=== PATIENT | female | born 1985 | race Caucasian/White ===

== ENCOUNTER 2023-12-03 12:25 | Emergency (ER) | payer BC, SELFPAY ==
[2023-12-03 12:43] VITALS: BP 163/93; PULSE 87; RESP 18; TEMP 36.8; O2SAT 97; BMI 42.1
--- NOTE | 2023-12-03 13:00 | XR_ITS ---
Patient: CHRISTI NO Facility:?[facility] Patient ID:?[id number] Site Patient ID:[id number]. Site :?[id number] Study:?XRay-Shoulder CLAVICLE 2 VIEW-12/03/2023 1:41:46 PM Ordering Physician:GARY Final Report: INDICATION: Fell down stairs. TECHNIQUE: Left clavicle two views. COMPARISON: None. FINDINGS: There is a comminuted segmental overlapping left mid shaft clavicle fracture with cephalad displacement of the medial clavicle. Soft tissues as imaged are unremarkable. IMPRESSION: Comminuted overlapping left midshaft clavicle fracture. Dictated by Sujit Akins MD @ 12/03/2023 2:00:49 PM Signed by:?Sujit Akins MD @12/03/2023 2:00:49 PM (Electronic Signature)
--- NOTE | 2023-12-03 13:01 | ED.GENADULT ---
HPI - General Adult General Chief complaint: Clavicle Injury/Pain Stated complaint: shoulder injury Time Seen by Provider: 12/03/23 12:26 History of Present Illness HPI narrative: This 38-year-old female comes in with an injury to her left shoulder and clavicle region. She states that she slid down a bunch of steps and fell injuring her left shoulder. She did not have loss of consciousness and does not report any other injury. She has been able to get up and ambulate without difficulty. She is complaining of pain at the mid left clavicle. Related Data Previous Rx's Medication Instructions Recorded hydrocodone 5 mg-acetaminophen 325 1 tab PO Q4-6H PRN pain #15 tabs 12/03/23 mg tablet Allergies Allergy/AdvReac Type Severity Reaction Status Date / Time No Known Drug Allergies Allergy Verified 12/03/23 12:45 Review of Systems Status of ROS: Reports: 10 or more systems reviewed and unremarkable except as noted in History and below Narrative: Constitutional: No fevers, no weight gain or loss. Eyes: No discharge. No vision changes. HENT: No congestion, no sore throat, no ear pain. Cardiovascular: No chest pain, no palpitations. Respiratory: No shortness of breath, no wheezes, no cough. Gastrointestinal: No abdominal pain, no vomiting, no diarrhea. Genitourinary: No dysuria, no hematuria. Musculoskeletal: Left clavicle injury as described above. Skin: No rashes, no pruritis. Neurological: No dizziness, weakness, sensory change, speech change. Endo/Heme/Allergies: No bruising or bleeding. No polydipsia. Pysch: no suicidality, no anxiety, no insomnia. All other systems reviewed and are negative. Exam Narrative: Exam Narrative: Constitutional: Well-developed, well-nourished, no acute distress. HEENT: Normocephalic, atraumatic. Neck: Normal range of motion. Nontender. Supple. Heart: Intact distal pulses. Lungs: No chest discomfort. No wheezes, rhonchi, or rales. Abdomen: Nontender. Back: Normal range of motion. Extremities: Patient prefers to hold her left upper extremity still. No sign of anterior fullness or tenderness when palpating in the proximal humerus. She does have tenderness in the midshaft area of the left clavicle but no obvious sign of deformity. Skin: Intact. No rash. Warm. No erythema or pallor. Neurologic: No altered sensation. No weakness. Alert and oriented. Psychiatric: No suicidality. No anxiety or depression. No insomnia. Nursing notes and vitals signs are reviewed. Const: Vital Signs, click to edit/add: Vital Signs - 24 hr 12/03/23 12:43 Temperature 98.2 F Pulse Rate [Right Pulse Oximeter] 87 Respiratory Rate 18 Blood Pressure [Ri ght Upper Arm] 163/93 H Pulse Oximetry 97 Oxygen Delivery Me thod Room Air Course Vital Signs Vital signs: Initial Vital Signs Temperature 98.2 F 12/03/23 12:43 Temperature Source Temporal Artery Scan 12/03/23 12:43 Pulse Rate 87 12/03/23 12:43 Respiratory Rate 18 12/03/23 12:43 Blood Pressure 163/93 H 12/03/23 12:43 Blood Pressure Mean 116 H 12/03/23 12:43 Blood Pressure Position Sitting 12/03/23 12:43 Pulse Oximetry 97 12/03/23 12:43 Oxygen Delivery Method Room Air 12/03/23 12:43 Vital Signs Temperature 98.2 F 12/03/23 12:43 Pulse Rate 87 12/03/23 12:43 Respiratory Rate 18 12/03/23 12:43 Blood Pressure 163/93 H 12/03/23 12:43 Pulse Oximetry 97 12/03/23 12:43 Oxygen Delivery Method Room Air 12/03/23 12:43 Temperature 98.2 F 12/03/23 12:43 Pulse Rate 87 12/03/23 12:43 Respiratory Rate 18 12/03/23 12:43 Blood Pressure 163/93 H 12/03/23 12:43 Pulse Oximetry 97 12/03/23 12:43 Oxygen Delivery Method Room Air 12/03/23 12:43 Medical Decision Making MDM Narrative Medical decision making narrative: This patient comes in with injury to her left shoulder as described above. X-rays obtained of the left clavicle and shows a midshaft fracture that is comminuted and displaced. X-ray images are yet to be reviewed by Radiology. The patient did receive a figure-eight clavicle strap and a sling. She is stating currently that she does not want any surgery however I informed her that the nature of this injury may require that. She is okay to be discharged home in did receive a prescription for tablets of Bart[place]. I advised her to follow-up with orthopedic clinic for ongoing management. Discharge Plan Discharge Clinical Impression: Clavicle fracture Patient Disposition: Home, Self-Care Condition: Stable Additional Instructions: Wear clavicle strap and use sling as needed. Use medication also as needed and directed. Follow-up with orthopedic clinic for ongoing management. Call [phone] for appointment. Prescriptions: New hydrocodone-acetaminophen 5-325 mg tablet 1 tab PO Q4-6H PRN (Reason: pain) Qty: 15 0RF Follow Up/Referrals: Provider,Not a Local [Primary Care Provider] - Stand Alone Forms: [employer] Info Instructions
== END 2023-12-03 14:10 | disposition home or self-care (01) ==
PROVIDERS: Emergency Provider Emergency Medicine Emergency Medical Services
DX: S42.025A Nondisplaced fracture of shaft of left clavicle, initial encounter for closed fracture (principal); W10.9XXA Fall (on) (from) unspecified stairs and steps, initial encounter
CPT/HCPCS: 73000; 99284

== ENCOUNTER 2023-12-11 08:34 | Day surgery (SDC) | payer BC, SELFPAY ==
[2023-12-11] VITALS (9 sets, daily range): BP systolic 117–162; BP diastolic 72–105; PULSE 52–94; RESP 14–22; TEMP 36.4–36.9; O2SAT 93–98; BMI 40.4
[2023-12-11 08:50] LABS: Ur HCG Qualitative* Negative (Negative)
[2023-12-11] MEDS: CELECOXIB 200 MG CAPSULE PO (09:04)
[2023-12-11] MEDS: ACETAMINOPHEN 500 MG TABLET 1000 MG PO (09:04)
[2023-12-11] MEDS: LACTATED RINGERS 1000 ML 1,000 ML 100 ML IV ×2 (09:08→11:58)
[2023-12-11] MEDS: SODIUM CHLORIDE 0.9 % (FLUSH) 10 ML SYRINGE IVF (09:08)
[2023-12-11] MEDS: OXYCODONE (CR) 10 MG TAB.ER.12H PO (09:09)
[2023-12-11] MEDS: CEFAZOLIN 2 GM INJ IVP (10:21)
--- NOTE | 2023-12-11 10:45 | CRLHL7_ITS ---
For Patients: As a result of the Cures Act, medical imaging exams and procedure reports are released immediately into your electronic medical record. You may view this report before your referring provider. If you have questions, please contact your health care provider. Indication: Left clavicle ORIF Technique: Four films of the left clavicle. IMPRESSION: Open reduction internal fixation left clavicular fracture with intact hardware and anatomic alignment. Dictated by David Herbert MD @ 12/12/2023 1:47:22 PM (Electronically Signed)
[2023-12-11] MEDS: BUPIVACAINE 0.5% 30 ML INJECTION (10:56)
--- NOTE | 2023-12-11 11:02 | W.ANESCHARGE ---
Anesthesia Charges Start Date/Time Anesthesia Start Date: 12/11/23 Anesthesia Start Time: 10:09 Stop Date/Time Anesthesia Stop Date: 12/11/23 Anesthesia Stop Time: 12:30
--- NOTE | 2023-12-11 11:58 | P.ORPRC_ITS ---
Procedure Note Date of procedure: 12/11/23 Procedure: PREOPERATIVE DIAGNOSIS: Comminuted and displaced left clavicle shaft fracture POSTOPERATIVE DIAGNOSIS: Comminuted and displaced left clavicle shaft fracture NAME OF OPERATION: ORIF SURGEON: Nikhil Isaac MD [facility] CHIEF LIBRARIAN: Acosta Weeks PA-C ANESTHESIA: General ESTIMATED BLOOD LOSS: 20 mL COMPLICATIONS: None SPECIMENS: None DRAINS: None PREOPERATIVE ANTIBIOTICS: Ancef 2 g INDICATIONS: The patient is a 38-year-old who sustained a left clavicle fracture. Given the amount of displacement, ORIF was recommended. The risks, benefits and expected outcomes were discussed in detail. These included but were not limited to: Infection, bleeding, injury to blood vessel or nerve, venous thromboembolism. All questions were answered to their satisfaction. PROCEDURE: General anesthesia was administered. The patient was placed in the lazy beach chair position. The shoulder was prepped and draped in the usual sterile fashion. A longitudinal incision was made over clavicle. Subcutaneous dissection was made with electrocautery to the medial fragment which was subperiosteally exposed. We followed this distally to locate the distal fragment and subperiosteally exposed it as well. There was a marked amount of midshaft comminution, with an anterior and inferior butterfly fragment. It was nearly impossible to find landmarks to reduce the 2 main fragments. We used a posterior landmark to obtain an anatomic reduction. A Synthes locking clavicle plate was placed over the superior cortex. This was secured with a BB tack on each side of the fracture. 2.7 mm locking screws were placed on each side of the fracture. The butterfly fragments were cerclaged in place with a 0 Vicryl suture. An intraoperative AP view of the clavicle show an adequate reduction with well placed implants. The wound was irrigated with normal saline. It was infiltrated with 0.5% Marcaine, without epinephrine. We closed the platysma with an 0 Vicryl. Subcutaneous tissues with a 2-0 Vicryl and skin with a 3-0 Monocryl. Glue was used to seal the skin. A dry dressing and sling were applied. The patient tolerated the procedure well. There were no apparent complications. They were carefully transferred to the hospital bed and taken to the postanesthesia care unit in satisfactory condition. PLAN: The patient will be discharged to home. Limited active range of motion of the shoulder will be allowed for 6 weeks. They will work on active range of motion of the elbow wrist and fingers. They will follow up in the office next week for a wound check and an AP and tangential view of the clavicle, prior to being seen.
--- NOTE | 2023-12-11 12:33 | W.ANESCHARGE ---
Anesthesia Charges Start Date/Time Anesthesia Start Date: 12/11/23 Anesthesia Start Time: 10:09 Stop Date/Time Anesthesia Stop Date: 12/11/23 Anesthesia Stop Time: 12:30
--- NOTE | 2023-12-11 13:03 | SUR.PHASEI ---
patient met discharge criteria per anesthesia
[2023-12-11] MEDS: HYDROCODONE-ACETAMIN 5-325 MG 1 TAB PO (13:16)
--- NOTE | 2023-12-11 13:54 | SUR.PHASEII ---
Assistant Professor Of Philosophy was about to place BP cuff to check one more vital set prior to d/c and patient refused. 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 pt discharged from unit at 1355.
== END 2023-12-11 13:56 | disposition home or self-care (01) ==
LOC: OR 08:35
PROVIDERS: Visit Provider Orthopaedic Surgery
PROC: (CPT 23515; principal; 2023-12-11 10:45)
DX: S42.022A Displaced fracture of shaft of left clavicle, initial encounter for closed fracture (principal)
CPT/HCPCS: 23515; 00450; 73000; 81025; A9270; C1713; J0330; J0665; J0690; J1100; J1170; J2250; J2371; J2405; J2704; J2710; J3010; J7120